=== PATIENT | female | born 1970 | race Caucasian/White ===

== ENCOUNTER 2020-01-12 16:38 | Emergency (ER) | payer MEDICAID ==
[~2020-01-12] VITALS: Ht 157.5 cm; Wt 61.0 kg
[2020-01-12 16:44] VITALS: BP 136/89
== END 2020-01-12 17:52 | disposition home or self-care (01) ==
LOC: ER 16:38
DX: L03.317 Cellulitis of buttock (principal); F41.9 Anxiety disorder, unspecified; F15.10 Other stimulant abuse, uncomplicated
CPT/HCPCS: 99281; 99283

== ENCOUNTER 2020-02-26 10:09 | Emergency (ER) | payer MEDICAID ==
[~2020-02-26] VITALS: Ht 160 cm; Wt 59.0 kg
[2020-02-26] MEDS ORDERED: BACITRACIN ZINC OINT UDPKT TOP ONE (10:45)
[2020-02-26 11:01] VITALS: BP 138/78
== END 2020-02-26 11:02 | disposition home or self-care (01) ==
LOC: ER 10:19
DX: S60.512A Abrasion of left hand, initial encounter (principal); S60.511A Abrasion of right hand, initial encounter; F15.10 Other stimulant abuse, uncomplicated; F17.210 Nicotine dependence, cigarettes, uncomplicated; X58.XXXA Exposure to other specified factors, initial encounter; Y93.89 Activity, other specified; Y92.018 Other place in single-family (private) house as the place of occurrence of the external cause
CPT/HCPCS: 99282

== ENCOUNTER 2021-03-30 09:48 | Emergency (ER) | payer MEDICAID, OTHER ==
[~2021-03-30] VITALS: Ht 160 cm; Wt 56.0 kg
[2021-03-30 09:52] VITALS: BP 145/98
[2021-03-30] MEDS ORDERED: ATROV INH (12:54)
[2021-03-30] MEDS ORDERED: IBUP-2028 MT (12:54)
[2021-03-30] MEDS ORDERED: ALBU6.7H9 INH (12:54)
[2021-03-30] MEDS ORDERED: LEVO750T46 MT (12:54)
[2021-03-30] MEDS ORDERED: BENZ-16 MT (12:54)
== END 2021-03-30 15:30 | disposition home or self-care (01) ==
LOC: ER 10:08
DX: J40 Bronchitis, not specified as acute or chronic (principal); F17.290 Nicotine dependence, other tobacco product, uncomplicated; F15.10 Other stimulant abuse, uncomplicated; Z79.899 Other long term (current) drug therapy
CPT/HCPCS: 71046; 99283; 99406

== ENCOUNTER 2021-06-19 20:18 | Emergency (ER) | payer MEDICAID, OTHER ==
[~2021-06-19] VITALS: Ht 160 cm; Wt 55.0 kg
[~2021-06-19 20:18] MED LIST: ALBU6.7H9 INH; ATROV INH; BENZ-16 MT; IBUP-2028 MT; LEVO750T46 MT
[2021-06-19] MEDS ORDERED: IBUPROFEN 400MG TABLET PO ONE (21:30)
[2021-06-19] MEDS ORDERED: LIDOCAINE HCL/PF 1% 10 MG/ML 5ML VIAL INFIL ONE (22:30)
[2021-06-19] MEDS ORDERED: LIDOCAINE HCL 1% 10 MG/ML 10ML VIAL IJ NR (22:45)
[2021-06-20] MEDS ORDERED: IBUP-2028 MT (00:32)
[2021-06-20 01:42] VITALS: BP 137/81
== END 2021-06-20 01:43 | disposition home or self-care (01) ==
LOC: ER 20:18
DX: S63.254A Unspecified dislocation of right ring finger, initial encounter (principal); Y04.0XXA Assault by unarmed brawl or fight, initial encounter; Y93.89 Activity, other specified; Y92.89 Other specified places as the place of occurrence of the external cause; Y99.8 Other external cause status
CPT/HCPCS: 26770; 73130; 73140; 73562; 99284; J3490; Z7610